=== PATIENT | female | born 1980 | race African-American/Black ===

== ENCOUNTER 2019-08-10 15:52 | Day surgery (SDC) | payer MEDICARE, OTHER ==
[~2019-08-10] VITALS: Ht 172.7 cm; Wt 150.0 kg
[2019-08-10] MEDS ORDERED: SODIUM CHLORIDE 0.9% 1,000 ML IV ONE (16:22)
[2019-08-10] MEDS ORDERED: MORPHINE SULFATE 4 MG/ML CPJ (NOT FOR IM USE) IV ONE ×2 (16:30→17:15)
[2019-08-10] MEDS ORDERED: ONDANSETRON HCL 4MG/2ML INJ IV ONE (16:30)
[2019-08-10] MEDS ORDERED: DEXT 5%/LR + PITOCIN 20UNITS/L 1,000 ML IV ONE (16:45)
[2019-08-10 17:12] LABS: BG BASE EXCESS -1.3 mmol/L (-2.0-2.0); BG CARBOXYHEMOGLOBIN 0.2 % (0.5-1.5); BG DEOXYHEMOGLOBIN 2.6 % (0.0-5.0); BG FRACTION INSPIRED OXYGEN 21; BG HCO3 ACT 21.6 mmol/L (22.0-26.0); BG METHEMOGLOBIN 0.2 % (0.0-1.5); BG OXYGEN SATURATION 97.4 % (92.0-98.5); BG PCO2 30.3 mmHg (35.0-45.0); BG PO2 94.4 mmHg (75.0-100.0); BG SAMPLE SITE LEFT BRACHIAL; BG TOTAL HEMOGLOBIN 11.3 g/dL (12.0-18.0); BG VENT MODE ROOM AIR
[2019-08-10 17:13] LABS: BASOPHILS % 0.4 % (0.0-2.0); EOSINOPHILS % 2.9 % (0.0-5.0); HEMATOCRIT. 34.1 % (36.0-48.0); HEMOGLOBIN. 11.2 g/dL (12.0-16.0); LYMPHOCYTES % 25.5 % (20.0-50.0); MEAN CORPUSCULAR HEMOGLOBIN 25.8 pg (28.0-32.0); MEAN CORPUSCULAR VOLUME 78.9 fL (81.0-99.0); MEAN PLATELET VOLUME 8.2 fl (7.4-10.4); MONOCYTES % 5.3 % (2.0-8.0); NEUTROPHILS % 65.9 % (40.0-76.0); PLATELET 293 x1000/uL (130-400); RED BLOOD CELL COUNT 4.32 mill/uL (4.2-5.4); RED CELL DISTRIBUTION WIDTH 16.3 % (11.6-14.6)
[2019-08-10 17:16] LABS: CHLORIDE 108 mEq/L (98-107)
[2019-08-10 17:24] LABS: HCG SCREEN POSITIVE
[2019-08-10] MEDS ORDERED: KETAMINE HCL 50 MG/ML 10ML ONE (17:42)
[2019-08-10 17:43] LABS: B-HCG QUANTITATIVE 3925 mIU/mL (<3)
[2019-08-10] MEDS ORDERED: FENTANYL CITRATE/PF 50MCG/ML 2ML VIAL ONE (17:45)
[2019-08-10] MEDS ORDERED: CEFAZOLIN 1000MG PREMIX 50 ML IV ONE (17:45)
[2019-08-10] MEDS ORDERED: MIDAZOLAM HCL 2 MG/2 ML VIAL ONE (17:45)
[2019-08-10] MEDS ORDERED: PROPOFOL 200MG/20ML VIAL IV ONE ×2 (17:45→18:58)
[2019-08-10] MEDS ORDERED: DEXAMETHASONE 4MG/ML 1ML VIAL ONE ×2 (18:28→18:40)
[2019-08-10] MEDS ORDERED: METOCLOPRAMIDE HCL 10MG/2ML VIAL ONE (18:29)
[2019-08-10] MEDS ORDERED: ONDANSETRON HCL 4MG/2ML INJ ONE (18:29)
[2019-08-10] MEDS ORDERED: SUCCINYLCHOLINE CHLORIDE 200MG/10ML IV ONE (18:36)
[2019-08-10] MEDS ORDERED: IBUPROFEN 800MG TABLET PO NR (19:15)
[2019-08-10] MEDS ORDERED: RHO(D) IMMUNE GLOBULIN 300 MCG/SYR IM SCH (19:15)
[2019-08-10] MEDS ORDERED: FENTANYL CITRATE/PF 50MCG/ML 2ML VIAL IV PRN (19:45)
[2019-08-10] MEDS ORDERED: HYDROMORPHONE HCL/PF 2MG/ML CPJ IV PRN (19:45)
[2019-08-10] MEDS ORDERED: ONDANSETRON HCL 4MG/2ML INJ IV PRN (19:45)
[2019-08-10 20:22] LABS: HEMATOCRIT 31.3 % (36.0-48.0); HEMOGLOBIN 10.1 g/dL (12.0-16.0)
[2019-08-10 21:37] VITALS: BP 122/81
== END 2019-08-10 21:55 | disposition home or self-care (01) ==
LOC: ER 15:52 → EDBEDREQTM 17:14 → EDBEDREQ 17:14 → OR 17:30 → CANRESERV 20:03 → ENRESERV 20:03 → OR 21:55 → CANBEDREQ 08-11 06:09
PROVIDERS: ATTEND Obstetrics & Gynecology
DX: O26.892 Other specified pregnancy related conditions, second trimester (principal); O03.4 Incomplete spontaneous abortion without complication; O99.212 Obesity complicating pregnancy, second trimester; O99.282 Endocrine, nutritional and metabolic diseases complicating pregnancy, second trimester; O09.522 Supervision of elderly multigravida, second trimester; Z3A.15 15 weeks gestation of pregnancy
CPT/HCPCS: 36415; 36600; 59812; 76830; 76856; 80053; 82375; 82805; 84702; 84703; 85014; 85018; 85025; 85610; 86850; 86900; 86901; 88305; 96365; 96367; 96375; 96376; 99291; J0330; J0690; J1100; J2250; J2270; J2405; J2590; J2704; J2765; J3010; J7030; J3490